=== PATIENT | female | born 1950 | race Caucasian/White ===

== ENCOUNTER 2022-05-17 11:34 | Observation (INO) ==
[2022-05-17] MEDS ORDERED: 0.9 % Sodium Chloride 1,000 ML IV ONE (16:15)
[2022-05-17] MEDS ORDERED: *HR* Metoprolol 5 MG/5 ML VIAL IVP ONE (16:15)
[2022-05-17 17:32] LABS: Basophils # 0.1 K/mcL (0.0-0.2); Basophils % 0.7 %; Eosinophils # 0.1 K/mcL (0.0-0.6); Eosinophils % 1.8 %; Hematocrit 46.4 % (35.3-44.9); Hemoglobin 15.6 g/dL (11.5-15.4); Immature Granulocytes % 0.6 % (0-4); Lymphocytes # 2.2 K/mcL (0.6-4.6); Lymphocytes % 30.6 %; Mean Corpuscular HGB Conc 33.6 g/dL (31.6-35.5); Mean Corpuscular Hemoglobin 29.6 pg (28.0-33.3); Mean Platelet Volume 9.7 fL (9.4-12.4); Monocytes # 0.7 K/mcL (0.0-1.3); Monocytes % 9.9 %; Platelet Count 299 K/mcL (140-400); Red Blood Count 5.27 M/mcL (3.82-4.97); Red Cell Distribution Width 12.7 % (11.5-14.5); Segmented Neutrophils % 56.4 %; White Blood Count 7.1 K/mcL (4.3-11.1)
[2022-05-17 17:46] LABS: INR 1.1; Prothrombin Time 11.8 Seconds (9.4-12.1)
[2022-05-17 17:48] LABS: Activated Partial Thrombo Time 35.7 Seconds (26.0-36.0)
[2022-05-17 18:00] LABS: BUN/Creatinine Ratio 18 (6-26); Blood Urea Nitrogen 14 mg/dL (8-23); Calcium 9.5 mg/dL (8.6-10.3); Carbon Dioxide 27 mEq/L (23-29); Chloride 101 mEq/L (98-107); Glucose 111 mg/dL (70-105); Osmolality,Calculated 291 (280-300); Potassium 3.6 mEq/L (3.5-5.1); Sodium 140 mEq/L (136-145); Troponin I 0.06 ng/mL (< 0.04); eGFR For African Americans > 60 (> 60); eGFR For Non-African Americans > 60 (> 60)
[2022-05-17] MEDS ORDERED: Aspirin 325 MG TABLET PO ONE (18:49)
[2022-05-17 20:33] LABS: Albumin 4.1 g/dL (3.5-5.7); Albumin/Globulin Ratio 1.5 (1.1-2.2); Bilirubin,Direct 0.1 mg/dL (0.0-0.2); Bilirubin,Indirect 0.3 mg/dL (0.0-1.0); Bilirubin,Total 0.4 mg/dL (0.3-1.0); Globulin 2.8 g/dL (2.4-3.5); Total Protein 6.9 g/dL (6.4-8.9)
[2022-05-17] MEDS ORDERED: *HR* Promethazine 25 MG/ML VIAL IM PRN (21:08)
[2022-05-17] MEDS ORDERED: Acetaminophen 325 MG TABLET PO PRN (21:08)
[2022-05-17] MEDS ORDERED: Naloxone 0.4 MG/ML INJ IVP PRN (21:08)
[2022-05-17] MEDS ORDERED: Melatonin 3 MG TABLET PO PRN (21:08)
[2022-05-17] MEDS ORDERED: Ondansetron 4 MG/2 ML VIAL IVP PRN (21:08)
[2022-05-17] MEDS: cloNIDine HCL 0.1 MG TABLET PO SCH (21:36)
[2022-05-17] MEDS: lisinopriL 20 MG TABLET PO SCH (21:36)
[2022-05-18 01:39] LABS: Basophils % 0.6 %; Eosinophils # 0.1 K/mcL (0.0-0.6); Eosinophils % 1.8 %; Hematocrit 39.7 % (35.3-44.9); Immature Granulocytes % 0.3 % (0-4); Lymphocytes # 2.5 K/mcL (0.6-4.6); Lymphocytes % 37.1 %; Mean Corpuscular HGB Conc 33.5 g/dL (31.6-35.5); Mean Corpuscular Hemoglobin 29.7 pg (28.0-33.3); Mean Corpuscular Volume 88.6 fL (83.0-100.0); Mean Platelet Volume 9.7 fL (9.4-12.4); Monocytes # 0.7 K/mcL (0.0-1.3); Monocytes % 10.4 %; Neutrophils # 3.3 K/mcL (1.6-8.9); Platelet Count 254 K/mcL (140-400); Red Blood Count 4.48 M/mcL (3.82-4.97); Red Cell Distribution Width 12.9 % (11.5-14.5); Segmented Neutrophils % 49.8 %; White Blood Count 6.7 K/mcL (4.3-11.1)
[2022-05-18 01:41] LABS: Hemoglobin 13.3 g/dL (11.5-15.4)
[2022-05-18 01:46] LABS: INR 1.1; Prothrombin Time 12.7 Seconds (9.4-12.1)
[2022-05-18 01:58] LABS: BUN/Creatinine Ratio 16 (6-26); Blood Urea Nitrogen 14 mg/dL (8-23); Calcium 8.5 mg/dL (8.6-10.3); Carbon Dioxide 28 mEq/L (23-29); Chloride 105 mEq/L (98-107); Chol/HDL Ratio 6.9 (0-4.9); Cholesterol 220 mg/dL (< 200); Glucose 129 mg/dL (70-105); HDL Cholesterol 32 mg/dL (40-59); LDL Cholesterol,Calculated 130 mg/dL (< 100); Magnesium 1.9 mg/dL (1.6-2.6); Osmolality,Calculated 294 (280-300); Potassium 3.5 mEq/L (3.5-5.1); Sodium 141 mEq/L (136-145); Triglycerides 292 mg/dL (< 150); eGFR For African Americans > 60 (> 60); eGFR For Non-African Americans > 60 (> 60)
[2022-05-18] MEDS ORDERED: Aspirin Enteric Coated 81 MG Tablet PO SCH (09:00)
[2022-05-18] MEDS ORDERED: Fenofibrate 54 MG TABLET PO SCH (09:00)
[2022-05-18] MEDS ORDERED: DilTIAZem CD (24hr) 120 MG CAP.ER.24H PO SCH ×2 (09:00→18:00)
[2022-05-18] MEDS ORDERED: hydroCHLOROthiazide 25 MG TABLET PO SCH (09:00)
[2022-05-18] MEDS: lisinopriL 20 MG TABLET PO SCH (09:32)
[2022-05-18] MEDS: cloNIDine HCL 0.1 MG TABLET PO SCH (09:32)
[2022-05-18 10:16] VITALS: PULSE 56; TEMP 97.8; O2SAT 94
[2022-05-18 11:19] VITALS: BP 156/71
== END 2022-05-18 14:24 | disposition home or self-care (01) ==
LOC: 3BNU 11:34 → EMEROOARM 11:34 → SUATTDRO 19:40 → 3BNU 20:26
PROVIDERS: ADMIT Internal Medicine; ATTEND Registered Nurse

== ENCOUNTER 2022-07-27 06:37 | Inpatient (IN) ==
[2022-07-27] MEDS ORDERED: Dexmedetomidine HCl 400 MCG/100 ML MLS IVC ONE (06:49)
[2022-07-27] MEDS ORDERED: *HR* Vasopressin 20 UNIT/ML VIAL ONE (06:49)
[2022-07-27] MEDS ORDERED: Albumin Human 5% 12.5 GM/250 ML IV.SOLN ONE (06:49)
[2022-07-27] MEDS ORDERED: NiCARdipine 2.5 MG/10 ML Syringe IVPB ONE (06:49)
[2022-07-27] MEDS ORDERED: *HR* Propofol 200 MG/20 ML VIAL IVP ONE (06:54)
[2022-07-27] MEDS ORDERED: *HR* FentaNYL (PF) 100 MCG/2 ML VIAL ONE (06:54)
[2022-07-27] MEDS ORDERED: Lidocaine -MPF 2% 5 ML VIAL ONE (07:00)
[2022-07-27] MEDS ORDERED: Ondansetron 4 MG/2 ML VIAL ONE (07:00)
[2022-07-27] MEDS ORDERED: Lidocaine HCL 4 ML Topical Solution (Laryng-O-Jet Kit Sterile Pak) TP ONE (07:00)
[2022-07-27] MEDS ORDERED: *HR* Rocuronium Bromide 50 MG/5 ML VIAL ONE ×3 (07:00→09:56)
[2022-07-27] MEDS ORDERED: Acetaminophen IV 1,000 MG/100 ML BAG IVPB ONE (07:12)
[2022-07-27] MEDS ORDERED: Ondansetron 4 MG/2 ML VIAL IVP PRN (07:14)
[2022-07-27] MEDS ORDERED: *HR* FentaNYL (PF) 100 MCG/2 ML VIAL IVP PRN (07:14)
[2022-07-27] MEDS ORDERED: *HR* Phenylephrine 10 MG/ML VIAL ONE (07:19)
[2022-07-27] MEDS ORDERED: CeFAZolin Syr 2,000MG/20 ML 2,000 MG/20 ML SYRINGE IVPB ONE (07:20)
[2022-07-27] MEDS ORDERED: Protamine Sulfate 50 MG/5 ML VIAL IVP ONE (07:30)
[2022-07-27] MEDS ORDERED: Ringers Solution, Lactated 1,000 ML IVC SCH (07:30)
[2022-07-27] MEDS ORDERED: Heparin 1,000 UNITS/500 mL 1,000 ML ONE (07:31)
[2022-07-27] MEDS ORDERED: ceFAZolin 1,000 MG, Sodium Chloride IRRigation 1,000 ML IR ONE (08:15)
[2022-07-27] MEDS ORDERED: *HR* Heparin 5,000 UNIT/ML VIAL ONE (10:08)
[2022-07-27] MEDS ORDERED: Sugammadex Sodium 200 MG/2 ML VIAL IV ONE (10:58)
[2022-07-27] MEDS ORDERED: *HR* HYDROMORPHONE 2 MG/ML VIAL ONE (11:05)
[2022-07-27] MEDS ORDERED: Heparin 1,000 UNITS/500 mL 500 ML ONE (11:59)
[2022-07-27] MEDS ORDERED: *HR* OxyCODONE Immed Rel 5 MG TABLET PO PRN (12:52)
[2022-07-27] MEDS ORDERED: Acetaminophen 325 MG TABLET PO PRN (12:52)
[2022-07-27] MEDS ORDERED: *HR* Labetalol 20 MG/4 ML SYRINGE IVP PRN (12:52)
[2022-07-27] MEDS ORDERED: Naloxone 0.4 MG/ML INJ IVP PRN (12:52)
[2022-07-27] MEDS ORDERED: *HR* HYDROcodone/Acet 5/325 mg TABLET PO PRN (12:52)
[2022-07-27] MEDS: hydrALAZINE 25 MG TABLET PO SCH (17:02)
[2022-07-27] MEDS: CeFAZolin 2 GM/120 ML BAG IVPB SCH (17:27)
[2022-07-27] MEDS ORDERED: COLLAGEN HYDR PO SCH (21:00)
[2022-07-27] MEDS ORDERED: DilTIAZem CD (24hr) 120 MG CAP.ER.24H PO SCH (21:00)
[2022-07-27] MEDS ORDERED: [UNRECOGNIZED DRUG - OTHER] PO SCH (21:00)
[2022-07-27] MEDS ORDERED: Melatonin 3 MG TABLET PO SCH (21:00)
[2022-07-27] MEDS ORDERED: ASCORBIC ACID PO SCH (21:00)
[2022-07-27] MEDS: Aspirin Enteric Coated 81 MG Tablet PO SCH (21:02)
[2022-07-27] MEDS: lisinopriL 20 MG TABLET PO SCH (21:02)
[2022-07-27] MEDS: cloNIDine HCL 0.1 MG TABLET PO SCH (21:02)
[2022-07-27] MEDS: Ascorbic Acid 500 MG TABLET PO SCH (21:04)
[2022-07-28] MEDS: CeFAZolin 2 GM/120 ML BAG IVPB SCH ×2 (00:43→09:17)
[2022-07-28] MEDS: hydrALAZINE 25 MG TABLET PO SCH ×2 (00:43→09:08)
[2022-07-28 05:20] LABS: Basophils % 0.1 %; Hematocrit 35.7 % (35.3-44.9); Immature Granulocytes % 0.4 % (0-4); Lymphocytes # 1.6 K/mcL (0.6-4.6); Lymphocytes % 12.1 %; Mean Corpuscular HGB Conc 33.6 g/dL (31.6-35.5); Mean Corpuscular Hemoglobin 29.3 pg (28.0-33.3); Mean Corpuscular Volume 87.1 fL (83.0-100.0); Mean Platelet Volume 9.9 fL (9.4-12.4); Monocytes # 0.9 K/mcL (0.0-1.3); Monocytes % 6.5 %; Platelet Count 292 K/mcL (140-400); Red Cell Distribution Width 13.4 % (11.5-14.5); Segmented Neutrophils % 80.9 %; White Blood Count 13.6 K/mcL (4.3-11.1)
[2022-07-28 05:40] LABS: Calcium 8.6 mg/dL (8.6-10.3); Potassium 3.8 mEq/L (3.5-5.1)
[2022-07-28] MEDS ORDERED: hydroCHLOROthiazide 25 MG TABLET PO SCH (09:00)
[2022-07-28] MEDS ORDERED: Cholecalciferol (D-3) 1,000 UNIT (25MCG) TABLET PO SCH (09:00)
[2022-07-28] MEDS ORDERED: DilTIAZem CD (24hr) 120 MG CAP.ER.24H PO SCH (09:00)
[2022-07-28] MEDS ORDERED: Fenofibrate 54 MG TABLET PO SCH (09:00)
[2022-07-28] MEDS ORDERED: Vitamin E 200 UNIT (90MG) CAPSULE PO SCH (09:00)
[2022-07-28] MEDS ORDERED: ZINC SULFATE 25 MG PO SCH (09:00)
[2022-07-28] MEDS ORDERED: Lactobacillus 1 EACH CAP.SPRINK PO SCH (09:00)
[2022-07-28] MEDS ORDERED: Multivit/Ca/Min/Fe/FA 1 TAB TABLET PO SCH (09:00)
[2022-07-28] MEDS ORDERED: NON-FORMULARY MEDICATION 1 EACH EACH (Biotin 1,000 MCG Tab.Chew) PO SCH (09:00)
[2022-07-28] MEDS ORDERED: NON-FORMULARY MEDICATION 1 EACH EACH (Omega-3/Dha/Epa/Fish Oil [Fish Oil 1,000 Mg Softgel] PO SCH (09:00)
[2022-07-28] MEDS: Ascorbic Acid 500 MG TABLET PO SCH (09:04)
[2022-07-28] MEDS: Aspirin Enteric Coated 81 MG Tablet PO SCH (09:06)
[2022-07-28] MEDS: lisinopriL 20 MG TABLET PO SCH (09:08)
[2022-07-28] MEDS: cloNIDine HCL 0.1 MG TABLET PO SCH (09:09)
[2022-07-28 11:01] VITALS: BP 128/52; PULSE 60; TEMP 97.7; O2SAT 95
== END 2022-07-28 15:01 | disposition home or self-care (01) | DRG 38 ==
LOC: SAMDAY 06:37 → 2NNU 12:39
PROVIDERS: ADMIT Surgery Vascular Surgery; ATTEND Surgery Vascular Surgery